=== PATIENT | female | born 1995 | race Two or more races ===

== ENCOUNTER 2022-03-28 06:35 | Day surgery (SDC) | payer OTHER | END 2022-03-28 20:08 | disposition home or self-care (01) | LOC: CIR.AMB 06:35 | PROVIDERS: ATTEND Obstetrics & Gynecology | DX: O03.4 Incomplete spontaneous abortion without complication (principal); Z20.822 Contact with and (suspected) exposure to COVID-19; G43.909 Migraine, unspecified, not intractable, without status migrainosus ==